=== PATIENT | female | born 1965 | race Two or more races ===

== ENCOUNTER 2018-01-29 11:13 | Outpatient (CLI) | payer OTHER | END 2018-01-29 11:20 | disposition home or self-care (01) | LOC: RAD 501 11:13 | DX: M12.88 Other specific arthropathies, not elsewhere classified, other specified site (principal); M19.90 Unspecified osteoarthritis, unspecified site ==

== ENCOUNTER 2018-05-14 09:16 | Outpatient (CLI) | payer OTHER | END 2018-05-14 10:35 | disposition home or self-care (01) | LOC: NUCLEAR 09:16 | DX: M81.0 Age-related osteoporosis without current pathological fracture (principal); R07.89 Other chest pain; R01.1 Cardiac murmur, unspecified; I38 Endocarditis, valve unspecified ==

== ENCOUNTER → 2018-05-14 11:22 | Outpatient (CLI) | payer OTHER | END | disposition home or self-care (01) | LOC: MAMO-SONO 09:15 | DX: Z12.31 Encounter for screening mammogram for malignant neoplasm of breast (principal); E04.1 Nontoxic single thyroid nodule ==

== ENCOUNTER 2020-03-06 11:19 | Outpatient (CLI) | payer OTHER | END 2020-03-06 16:09 | disposition home or self-care (01) | LOC: OFIC 805 11:19 | PROVIDERS: ATTEND Otolaryngology Otology & Neurotology | DX: H92.02 Otalgia, left ear (principal); H61.23 Impacted cerumen, bilateral ==

== ENCOUNTER → 2020-09-23 10:40 | Outpatient (CLI) | payer OTHER | END | disposition home or self-care (01) | LOC: LAB 10:40 | PROVIDERS: ATTEND Emergency Medicine Pediatric Emergency Medicine | DX: Z03.818 Encounter for observation for suspected exposure to other biological agents ruled out (principal) ==

== ENCOUNTER 2021-02-04 14:00 | Outpatient (CLI) | payer OTHER | END 2021-02-04 14:01 | disposition home or self-care (01) | LOC: MAMO-SONO 14:00 | PROVIDERS: ATTEND Specialist | DX: N64.59 Other signs and symptoms in breast (principal); Z12.31 Encounter for screening mammogram for malignant neoplasm of breast; Z87.898 Personal history of other specified conditions; N60.11 Diffuse cystic mastopathy of right breast; N60.12 Diffuse cystic mastopathy of left breast ==